=== PATIENT | female | born 1970 | race Caucasian/White ===

== ENCOUNTER 2017-06-05 12:41 | Emergency (ER) | payer MEDICAID ==
--- NOTE | 2017-06-05 12:46 | ED Physician Chart ---
Chief Complaint/HPI - Patient Information Date Seen:: 06/05/17 Time Seen:: 12:45 Chief Complaint:: shoulder pain History of Present Illness:: 46-year-old female complains of acute, constant, worsening, severe, aching, 10 out of 10, radiating down the right arm, right shoulder pain 1 week. Denies any injury. Historian:: Patient Review:: Nurse's Note Reviewed Review of Systems - Review of Systems Other: Complete system review otherwise unremarkable except as noted in history of present illness. Past Medical History - Past Medical History Past Medical History: No significant medical hx Family History: None Social History: Non Smoker, No Alcohol, No Drug Use Surgical History: Psychiatricy History: None Medication: None Family Medical History - Family Member Mother Ethnicity: Living Status: Still Living Hx Family Cancer: No Hx Family Coronary Artery Disease: No Hx Family Congestive Heart Failure: No Physical Exam - Physical Examination Other:: INITIAL VITAL SIGNS: Reviewed by me GENERAL: Alert and interactive. Moderate distress due to pain HEAD: Head is normocephalic and atraumatic EYES: EOMI. PERRL. No scleral icterus. No conjunctival injection ENT: Moist mucous membranes. NECK: Supple. No masses. Full range of motion RESPIRATORY: No tachypnea. Clear breath sounds bilaterally. No wheezing, rales, or rhonchi CV: Regular rate and rhythm. No murmurs, rubs, or gallops ABDOMEN: Soft, non-distended, non-tender. No guarding. No rebound. No masses. EXTREMITIES: No deformity. No cyanosis. No edema. Right shoulder has slightly limited range of motion with abduction restricted greater than 90 due to pain. The right hand has good neurovascular status. Signs of injury on the shoulder. SKIN: Warm and dry. No obvious rashes. NEUROLOGIC: Alert and oriented. Face is symmetric. Speech is normal. Moves all extremities equally. Motor and sensory distally intact. . Labs/Radiology/EKG Results - Radiology Results Results: X-ray right Shoulder 3V Interpreted by me: Bones: No fracture Joints: No dislocation Foreign body: None ED Septic Shock - . Is Septic Shock (SBP<90, OR Lactate>4 mmol\L) present?: No Reassessment (Disposition) - Reassessment Reassessment:: Patient presents with right shoulder pain worsening over the past week. May have some adhesive capsulitis or cyanosis. However there is no apparent injury to the shoulder. There is good neurovascular status of the right hand. Images of the shoulder unremarkable for any acute findings. We did give Toradol and acetaminophen. There was some relief. Prescription for ibuprofen 400 mg. Recommend follow-up with PCP in one to 2 days. May benefit from physical therapy. Return to ER precautions given. The patient says she understands and agrees with the plan. Blood pressure was noted to be elevated over 120/80. There were no signs of hypertension. Discussed the findings with the patient and recommended that the patient follow up with the primary care physician regarding the elevated blood pressure. - Diagnosis Diagnosis:: Acute right shoulder pain - Aftercare/Follow up Instructions Aftercare/Follow-Up Instructions:: Counseled pt regarding lab results/diagnosis & need follow up, Refer to Discharge Instructions Medication Prescribed:: Ibuprofen 400 mg, one tab by mouth every 6 hours when necessary pain, #30 - Patient Disposition Discharge/Transfer:: Home Time:: 13:01 Condition at Disposition:: Improved ED Discharge Plan - Patient Disposition Admit/Discharge/Transfer: PT DISCHARGED HOME Condition at Disposition: Improved Instructions: Shoulder Pain Additional Instructions: Follow-up with your primary care physician within one to 2 days. You may benefit from physical therapy.
[2017-06-05] MEDS ORDERED: Acetaminophen 500 MG TAB ONE (12:53)
--- NOTE | 2017-06-07 09:06 | Diagnostic Imaging Report ---
RIGHT SHOULDER 3 VIEWS HISTORY: Pain There is normal bone density. No focal bony lesions are seen. The joint spaces are normal. No abnormal soft tissue calcifications. IMPRESSION: negative examination
== END 2017-06-05 13:46 | disposition home or self-care (01) ==
LOC: ER 12:41
DX: M25.511 Pain in right shoulder (principal)
CPT/HCPCS: 99284; 96372; 73030; J1885; Z7502; Z7610